=== PATIENT | male | born 1935 ===

== ENCOUNTER → 2020-08-21 | Outpatient (CLI) | payer OTHER ==
--- NOTE | 2020-08-21 11:52 | CT ---
EXAMINATION TYPE: CT brain wo con DATE OF EXAM: 08/21/2020 COMPARISON: None HISTORY: Headache CT DLP: 979.80 mGycm Automated exposure control for dose reduction was used. Helical imaging through the brain FINDINGS: Cortical atrophy is likely age-related. Periventricular white matter shows patchy low attenuation. Th ere is no hemorrhage or hydrocephalus evident. No mass effect. Cerebral vascular calcifications are p resent. The calvarium is intact. Paranasal sinuses and mastoid air cells as visualized are well aerat ed. The orbits show symmetric appearance. IMPRESSION: NO ACUTE ABNORMALITY. AGE-RELATED CHANGES OF ATROPHY AND PROBABLE CHRONIC SMALL VESSEL ISCHEMIA.
== END | disposition home or self-care (01) ==
LOC: RADCTMAIN 08:25
PROVIDERS: ATTEND Nurse Practitioner Acute Care
DX: R51.9 Headache, unspecified (principal)
CPT/HCPCS: 70450

== ENCOUNTER 2021-03-20 11:54 | Day surgery (SDC) | payer OTHER ==
[2021-03-19 09:46] VITALS: BMI 23.1
--- NOTE | 2021-03-20 08:53 | HP ---
HISTORY AND PHYSICAL CHIEF COMPLAINT: Left wrist pain/hand numbness. HISTORY OF PRESENT ILLNESS: Patient is an 85-year-old, right-hand dominant, retired gentleman who presents with progressive left hand pain and numbness for the past year. He denies any injury. He notes index, middle and ring finger numbness. He has tried wearing braces without much relief. He notes significant night symptoms. In addition, he is having a difficult time with gripping and grasping. PAST MEDICAL HISTORY: Significant for arthritis, depression, hypercholesterolemia. PAST SURGICAL HISTORY: Significant for left ankle surgery and cholecystectomy. CURRENT MEDICATIONS: Lovastatin. ALLERGIES: He denies drug allergies. FAMILY HISTORY: Significant for heart disease and cancer. SOCIAL HISTORY: Negative for current tobacco or alcohol use. REVIEW OF SYSTEMS: Sixteen-point review of systems otherwise reviewed and is noncontributory. PHYSICAL EXAMINATION: On examination, the patient is approximately 6 feet 2 inches, 189 pounds, of mesomorphic habitus. HEENT exam is nonfocal. Neck is supple. He is nontender about the left shoulder and elbow. On examination of his left wrist, he has a positive Tinel's over the carpal canal. Moderate thenar wasting is noted. Abductors pollicis brevis strength 5 minus over 5. Light touch is diminished in the left index, middle and ring finger. He has full digital range of motion. IMPRESSION: Symptomatic left carpal tunnel syndrome. RECOMMENDATIONS: I talked to the patient at length regarding his condition and treatment options. At this point, he is quite symptomatic and limited because of pain and numbness despite previous conservative measures. After thorough discussion, he opts to proceed with surgery. We will plan to proceed with left carpal tunnel release utilizing local anesthetic and IV sedation. We will perform that as an outpatient procedure. Risks and benefits were discussed at length in layman's terms. MMODL / IJN: [id number] /
[~2021-03-20 11:54] MED LIST: LACTATED RINGERS 1,000 ML IV SCH; LIDOCAINE 1% (10MG/ML) FOR IV START INTRADERMA PRN; ONDANSETRON 4 MG/2 ML VIAL IVP PRN; fentaNYL (PF) 50 MCG/ML 2 ML AMP IV PRN
[2021-03-20 12:38] VITALS: RESP 16; TEMP 97.6
[2021-03-20 12:47] LABS: Glucose,Whole Blood 113 mg/dL (75-99)
[2021-03-20] MEDS ORDERED: fentaNYL (PF) 50 MCG/ML 2 ML AMP ONE (13:15)
[2021-03-20] MEDS ORDERED: PROPOFOL 10 MG/ML 20 ML VIAL IV ONE (13:15)
[2021-03-20] MEDS ORDERED: MIDAZOLAM 2 MG/2 ML VIAL ONE (13:15)
[2021-03-20] MEDS ORDERED: diphenhydrAMINE 50 MG/ML 1 ML VIAL ONE (13:15)
[2021-03-20] MEDS ORDERED: BUPIVACAINE (PF) 0.25% 30 ML VIAL SQ ONE ×2 (13:35)
--- NOTE | 2021-03-20 13:55 | P.OP ---
Date of Procedure: 03/20/21 Preoperative Diagnosis: Left carpal tunnel syndromesymptomatic Postoperative Diagnosis: Same Procedure(s) Performed: Left carpal tunnel release Anesthesia: MAC, local Surgeon: Jan Middleton Estimated Blood Loss (ml): 1 Pathology: none sent Condition: stable Disposition: PACU Indications for Procedure: The patient's 85-year-old male who presents with persistent/progressive left hand pain and numbness secondary to carpal tunnel syndrome despite conservative measures. Discussion of the risks and benefits of operative intervention was made with patient. He opted to proceed. Operative risks to include infection, neurovascular injury, development of blood clots, possible incomplete resolution of symptoms, possible recurrence of symptoms and need for subsequent procedures was discussed. Informed consent was obtained. Operative Findings: As below Description of Procedure: The patient was brought to the operating room, and after induction of IV sedation the left upper extremity was prepped and draped in normal fashion. The proposed incision site was outlined skin marker in line with the radial aspect the fourth ray extending from the volar wrist crease distally 2-1/2 cm. One quarter percent plain Marcaine was injected into the proposed incision site. 9 mL was utilized. The tourniquet was inflated to 250 mmHg. The skin incision was then made. The skin was incised sharply. Subcutaneous tissues were divided sharply the superficial palmar fascia was identified and split in line with the skin incision. The transverse carpal ligament was identified and transected under direct visualization distally to level the palmar fat pad. Proximal was taken level of the volar wrist crease. A plane above and below the transverse carpal ligament was then bluntly developed with tenotomies. The confluence of the distal forearm fascia and the transverse carpal ligament was then transected under direct visualization proximally with the tines pointed in the ulnar direction. I felt this was adequate proximal release. Neural lysis was not performed. The wound was irrigated with normal saline. Electrocautery was used for hemostasis. The skin was reapproximated with simple 3-0 nylon sutures. A sterile dressing was applied. The tourniquet was deflated with less than 15 minutes total tourniquet time. Patient was awoken from sedation and transferred to the recovery room in good condition. Blood loss was estimated 1 mL. No complications were incurred. Sponge and needle counts were correct at the end the case.
[2021-03-20 14:19] VITALS: BP 130/72; PULSE 70
== END 2021-03-20 14:37 | disposition home or self-care (01) ==
LOC: OR 11:54
PROVIDERS: ATTEND Orthopaedic Surgery
DX: G56.02 Carpal tunnel syndrome, left upper limb (principal); M19.90 Unspecified osteoarthritis, unspecified site; F32.9 Major depressive disorder, single episode, unspecified; E78.00 Pure hypercholesterolemia, unspecified; Z98.890 Other specified postprocedural states; Z90.49 Acquired absence of other specified parts of digestive tract; Z82.49 Family history of ischemic heart disease and other diseases of the circulatory system; Z80.9 Family history of malignant neoplasm, unspecified; Z79.899 Other long term (current) drug therapy; E78.5 Hyperlipidemia, unspecified; E11.9 Type 2 diabetes mellitus without complications
CPT/HCPCS: 64721; J2250; J1200; J0690; J2405; J3010; J2704

== ENCOUNTER 2022-11-16 13:45 | Emergency (ER) | payer OTHER, MEDICARE ==
[2022-11-16 13:53] VITALS: TEMP 98
[2022-11-16] MEDS ORDERED: SODIUM CHLORIDE 0.9% 1,000 ML IV STA (14:04)
[2022-11-16 14:27] LABS: Basophils % (A) 0 %; Eosinophils % (A) 1 %; HCT 34.8 % (39.0-53.0); HGB 11.9 gm/dL (13.0-17.5); Lymphocytes # (A) 0.7 k/uL (1.0-4.8); Lymphocytes % (A) 17 %; MCHC 34.1 g/dL (31.0-37.0); MCV 102.9 fL (80.0-100.0); Macrocytosis Slight; Monocytes # (A) 0.2 k/uL (0-1.0); Monocytes % (A) 5 %; Neutrophils # (A) 3.2 k/uL (1.3-7.7); Neutrophils % (A) 76 %; Platelet Count 160 k/uL (150-450); RBC 3.38 m/uL (4.30-5.90); RDW 14.1 % (11.5-15.5); WBC 4.1 k/uL (3.8-10.6)
--- NOTE | 2022-11-16 14:28 | ED ---
Back Pain HPI - General Chief Complaint: Back Pain/Injury Stated Complaint: Weakness Time Seen by Provider: 11/16/22 13:48 Source: patient Limitations: physical limitation - History of Present Illness Initial Comments: Patient is an 87-year-old male who presents to the emergency department with a chief complaint of back pain. According to daughter patient had a fall in August resulting in fracture of T11. Patient was taken to [facility]. Patient has had significant back pain since the injury. No reinjury. Taking Lamoure without relief. States he is unable to lay down due to pain. Daughter states on November 13 Dr. Jeronimo performed kyphoplasty which did not i mprove pain. This past Thursday his Lamoure dose was increased from 7.5 mg to 10 mg. Despite of this patient is still very uncomfortable. Reports intermittent spasms of his lower back and new onset tingling of his feet this morning. Over the past week he has decreased his oral intake. He is having trouble standing due to weakness and back pain. No focal weakness. No numbness and tingling of the groin. No loss of bowel or bladder function. Patient does not have a public transit specialist. Fever, chills, chest pain, shortness of breath, abdominal pain, nausea, vomiting, burning with urination, diarrhea, constipation. Patient received fentanyl in the ambulance. - Related Data Home Medications Medication Instructions Recorded Confirmed Co Q-10 (Unknown Dose) 1 cap PO DAILY 06/17/16 03/19/21 Multivitamin/Iron/Folic Acid 1 tab PO DAILY 06/17/16 03/19/21 [Centrum Complete Multivit Tab] Vitamin B-12 (Unknown Dose) 1 tab PO DAILY 06/17/16 03/19/21 Calcium Carbonate [Calcium] 600 mg PO DAILY 08/01/20 03/19/21 Cholecalciferol [Vitamin D3 (25 1,000 unit PO DAILY 08/01/20 03/19/21 Mcg = 1000 Iu)] Magnesium Gluconate [Magonate] 500 mg PO DAILY 08/01/20 03/19/21 Weston-3 Fatty Acids/Fish Oil [Fish 1 each PO DAILY 08/01/20 03/19/21 Oil 1,000 mg Softgel] Atorvastati(Unk Dose) 1 tab PO DAILY 03/19/21 03/19/21 Allergies Allergy/AdvReac Type Severity Reaction Status Date / Time No Known Allergies Allergy Verified 11/16/22 13:53 Review of Systems ROS Statement: Those systems with pertinent positive or pertinent negative responses have been documented in the HPI. ROS Other: All systems not noted in ROS Statement are negative. Past Medical History Past Medical History: Diabetes Mellitus, Hyperlipidemia, Osteoarthritis (OA), Prostate Disorder, Skin Disorder Additional Past Medical History / Comment(s): States urinary frequency, Eczema, umbilical hernia,skin Ca,left carpel tunnel,age related forgetfulness,hip injury after fall History of Any Multi-Drug Resistant Organisms: None Reported Past Surgical History: Cholecystectomy, Orthopedic Surgery Additional Past Surgical History / Comment(s): States left ankle repair r/t fall in 1970s Past Anesthesia/Blood Transfusion Reactions: Family History of Problems w/ Anesthesia, Motion Sickness Additional Past Anesthesia/Blood Transfusion Reaction / Comment(s): dtr has PONV Past Psychological History: No Psychological Hx Reported Smoking Status: Never smoker - Past Family History Mother Family Medical History: Diabetes Mellitus, Hypertension Father Family Medical History: Liver Disease, Myocardial Infarction (TN) General Exam Limitations: physical limitation General appearance: alert, in no apparent distress Head exam: Present: atraumatic, normocephalic, normal inspection Eye exam: Present: normal appearance, PERRL, EOMI. Absent: scleral icterus, conjunctival injection, periorbital swelling Respiratory exam: Present: normal lung sounds bilaterally. Absent: respiratory distress, wheezes, rales, rhonchi, stridor Cardiovascular Exam: Present: regular rate, normal rhythm, normal heart sounds. Absent: systolic murmur, diastolic murmur, rubs, gallop, clicks GI/Abdominal exam: Present: soft, distended (moderate), normal bowel sounds, hernia (Umbilical, nontender to palpation.). Absent: tenderness, guarding, rebound, rigid Extremities exam: Present: normal inspection Back exam: Present: normal inspection, paraspinal tenderness (thoracic/lumbar), vertebral tenderness (thoracic/lumbar) Neurological exam: Present: alert, oriented X3, CN II-XII intact Expanded Sensory exam: Upper Extremity Light Touch: Normal, Lower Extremity Light Touch: Normal Motor strength exam: RUE: 5, LUE: 5, RLE: 5, LLE: 5 Psychiatric exam: Present: normal affect, normal mood Skin exam: Present: warm, dry, intact, normal color. Absent: rash Course Vital Signs 11/16/22 11/16/22 11/16/22 13:51 15:53 17:25 Temperature 98.0 F Pulse Rate 96 80 86 Respiratory 16 18 18 Rate Blood Pressure 127/85 140/76 146/86 O2 Sat by Pulse 96 98 98 Oximetry Medical Decision Making - Medical Decision Making Was pt. sent in by a medical professional or institution (, PA, [employer], urgent care, hospital, or residential...) When possible be specific @ -[No] Did you speak to anyone other than the patient for history (EMS, parent, family, police, friend...)? What history was obtained from this source @ -Patient's daughter Did you review nursing and triage notes (agree or disagree)? Why? @ -[I reviewed and agree with nursing and triage notes] Were old charts reviewed (outside hosp., previous admission, EMS record, old EKG, old radiological studies, urgent care reports/EKG's, residential records)? Report findings @ -Yes, previous spine history not available Differential Diagnosis (chest pain, altered mental status, abdominal pain women, abdominal pain men, vaginal bleeding, weakness, fever, dyspnea, syncope, headache, dizziness, GI bleed, back pain, seizure, CVA, palpatations, mental health)? @ -Differential Weakness: Hypoglycemia, shock, sepsis, hyponatremia, anemia, infection, TN, ETOH, adverse medicine reaction, overdose, stroke, this is not meant to be an all-inclusive list. EKG interpreted by me (3pts min.). @ -Yes, sinus rhythm. Right bundle branch block. Ventricular rate 77, ID interval 207, QRS duration 155, QTC 423 X-rays interpreted by me (1pt min.). @ Yes, KUB x-ray shows mild fecal retention. Chest x-ray negative for acute process. CT interpreted by me (1pt min.). @ -Yes, CT of the thoracic lumbar spine without contrast shows subluxation deformity with old fracture of T11 including the posterior elements and spinal stenosis, possibly reflecting an unstable spine U/S interpreted by me (1pt. min.). @ -[None done] What testing was considered but not performed or refused? (CT, X-rays, U/S, labs)? Why? @ -[None] What meds were considered but not given or refused? Why? @ -[None] Did you discuss the management of the patient with other professionals (professionals i.e. , PA, [employer], lab, RT, psych nurse, social science professor, case technician, teacher, juvenile officer, case assistant)? Give summary @ -[No] Was smoking cessation discussed for >3mins.? @ -[No] Was critical care preformed (if so, how long)? @ -[No] Were there social determinants of health that impacted care today? How? (Homelessness, low income, unemployed, alcoholism, drug addiction, transportation, low edu. Level, literacy, decrease access to med. care, [facility], rehab)? @ -[No] Was there de-escalation of care discussed even if they declined (Discuss DNR or withdrawal of care, Hospice)? DNR status @ -[No] What co-morbidities impacted this encounter? (DM, HTN, Smoking, COPD, CAD, Cancer, CVA, ARF, Chemo, Hep., AIDS, mental health diagnosis, sleep apnea, morbid obesity)? @ -[None] Was patient admitted / discharged? Hospital course, mention meds given and route, prescriptions, significant lab abnormalities, going to OR and other pertinent info. @ -This an 87-year-old male presenting with acute on chronic back pain and new onset b/l foot numbness.No neurological deficits on physical exam. CT of the thoracic lumbar spine without contrast shows subluxation deformity with old fracture of T11 including the posterior elements and spinal stenosis, possibly reflecting an unstable spine. I discussed case with Dr. Jeronimo who recommended admission with consult to orthopedic public transit specialist. Case discussed with Dr. Blake who declines consult-recommends Dr. Jeronimo follow this case for continuation of care. This was discussed with patient and his daughter who refuse further management with Dr. Jeronimo due to dissatisfaction with kyphoplasty procedure. I spoke with Dr. Blake again who recommends transfer for neurosurgical evaluation due to acute on chronic back pain with new neurological symptoms and concerning CT. Daughter requests transfer to [facility]. Case discussed with neurosurgeon Dr. Martin and ED attending [facility] who accept transfer. Patient transferred in stable condition Undiagnosed new problem with uncertain prognosis? @ -[No] Drug Therapy requiring intensive monitoring for toxicity (Heparin, Nitro, Insulin, Cardizem)? @ -[No] Were any procedures done? @ -[No] Diagnosis/symptom? @ -Back pain Acute, or Chronic, or Acute on Chronic? @ -Acute on chronic Uncomplicated (without systemic symptoms) or Complicated (systemic symptoms)? @ Uncomplicated Side effects of treatment? @ -[none] Exacerbation, Progression, or Severe Exacerbation] @ -[no] Poses a threat to life or bodily function? @ -[no] is my attending - Lab Data Result diagrams: 11/16/22 14:12 11/16/22 14:12 Lab Results 11/16/22 11/16/22 11/16/22 Range/Units 14:12 14:12 14:15 WBC 4.1 (3.8-10.6) k/uL RBC 3.38 L (4.30-5.90) m/uL Hgb 11.9 L (13.0-17.5) gm/dL Hct 34.8 L (39.0-53.0) % MCV 102.9 H (80.0-100.0) fL MCH 35.0 (25.0-35.0) pg MCHC 34.1 (31.0-37.0) g/dL RDW 14.1 (11.5-15.5) % Plt Count 160 (150-450) k/uL MPV 8.0 Neutrophils % 76 % Lymphocytes % 17 % Monocytes % 5 % Eosinophils % 1 % Basophils % 0 % Neutrophils # 3.2 (1.3-7.7) k/uL Lymphocytes # 0.7 L (1.0-4.8) k/uL Monocytes # 0.2 (0-1.0) k/uL Eosinophils # 0.0 (0-0.7) k/uL Basophils # 0.0 (0-0.2) k/uL Macrocytosis Slight Sodium 138 (137-145) mmol/L Potassium 4.1 (3.5-5.1) mmol/L Chloride 104 (98-107) mmol/L Carbon Dioxide 28 (22-30) mmol/L Anion Gap 6 mmol/L BUN 22 H (9-20) mg/dL Creatinine 0.68 (0.66-1.25) mg/dL Est GFR (CKD-EPI)AfAm >90 (>60 ml/min/1.73 sqM) Est GFR (CKD-EPI)NonAf 86 (>60 ml/min/1.73 sqM) Glucose 136 H (74-99) mg/dL Calcium 8.9 (8.4-10.2) mg/dL Magnesium 2.3 (1.6-2.3) mg/dL Total Bilirubin 0.7 (0.2-1.3) mg/dL AST 24 (17-59) U/L ALT 24 (4-49) U/L Alkaline Phosphatase 108 (38-126) U/L Total Protein 6.6 (6.3-8.2) g/dL Albumin 3.7 (3.5-5.0) g/dL Urine Color Urine Appearance (Clear) Urine pH (5.0-8.0) Ur Specific [place] (1.001-1.035) Urine Protein (Negative) Urine Glucose (UA) (Negative) Urine Ketones (Negative) Urine Blood (Negative) Urine Nitrite (Negative) Urine Bilirubin (Negative) Urine Urobilinogen (<2.0) mg/dL Ur Leukocyte Esterase (Negative) Urine RBC (0-5) /hpf Urine WBC (0-5) /hpf Ur Squamous Epith Cells (0-4) /hpf Urine Bacteria (None) /hpf Urine Mucus (None) /hpf Influenza Type A (PCR) Not Detected (Not Detectd) Influenza Type B (PCR) Not Detected (Not Detectd) RSV (PCR) Not Detected (Not Detectd) SARS-CoV-2 (PCR) Not Detected (Not Detectd) 11/16/22 Range/Units 16:10 WBC (3.8-10.6) k/uL RBC (4.30-5.90) m/uL Hgb (13.0-17.5) gm/dL Hct (39.0-53.0) % MCV (80.0-100.0) fL MCH (25.0-35.0) pg MCHC (31.0-37.0) g/dL RDW (11.5-15.5) % Plt Count (150-450) k/uL MPV Neutrophils % % Lymphocytes % % Monocytes % % Eosinophils % % Basophils % % Neutrophils # (1.3-7.7) k/uL Lymphocytes # (1.0-4.8) k/uL Monocytes # (0-1.0) k/uL Eosinophils # (0-0.7) k/uL Basophils # (0-0.2) k/uL Macrocytosis Sodium (137-145) mmol/L Potassium (3.5-5.1) mmol/L Chloride (98-107) mmol/L Carbon Dioxide (22-30) mmol/L Anion Gap mmol/L BUN (9-20) mg/dL Creatinine (0.66-1.25) mg/dL Est GFR (CKD-EPI)AfAm (>60 ml/min/1.73 sqM) Est GFR (CKD-EPI)NonAf (>60 ml/min/1.73 sqM) Glucose (74-99) mg/dL Calcium (8.4-10.2) mg/dL Magnesium (1.6-2.3) mg/dL Total Bilirubin (0.2-1.3) mg/dL AST (17-59) U/L ALT (4-49) U/L Alkaline Phosphatase (38-126) U/L Total Protein (6.3-8.2) g/dL Albumin (3.5-5.0) g/dL Urine Color Yellow Urine Appearance Cloudy (Clear) Urine pH 6.5 (5.0-8.0) Ur Specific [place] 1.016 (1.001-1.035) Urine Protein 1+ H (Negative) Urine Glucose (UA) Negative (Negative) Urine Ketones Negative (Negative) Urine Blood Moderate H (Negative) Urine Nitrite Negative (Negative) Urine Bilirubin Negative (Negative) Urine Urobilinogen <2.0 (<2.0) mg/dL Ur Leukocyte Esterase Large H (Negative) Urine RBC 30 H (0-5) /hpf Urine WBC 101 H (0-5) /hpf Ur Squamous Epith Cells <1 (0-4) /hpf Urine Bacteria Moderate H (None) /hpf Urine Mucus Rare H (None) /hpf Influenza Type A (PCR) (Not Detectd) Influenza Type B (PCR) (Not Detectd) RSV (PCR) (Not Detectd) SARS-CoV-2 (PCR) (Not Detectd) Disposition Clinical Impression: Back pain Disposition: OTHER INSTITUTION NOT DEFINED Referrals: [facility],Clinic [Primary Care Provider] - 1-2 days - Out of Hospital Transfer - Req. Specs Out of Hospital Transfer - Requested Specifics: Other Emergency Center ([facility])
--- NOTE | 2022-11-16 14:38 | XR ---
EXAMINATION TYPE: XR chest 2V DATE OF EXAM: 11/16/2022 COMPARISON: 06/17/2016 HISTORY: Weakness TECHNIQUE: 2 views FINDINGS: There is minimal linear density left lung base. No heart failure. Heart size is normal. The re is old right-sided healed rib fractures. There is old lower thoracic compression fracture at T12 w ith 75% wedging and vertebral plasty. IMPRESSION: There is some minimal atelectasis left lung base which appears new compared to old exam. No heart failure.
[2022-11-16 14:42] LABS: ALT 24 U/L (4-49); AST 24 U/L (17-59); African American GFR (CKD) >90 (>60 ml/min/1.73 sqM); Albumin 3.7 g/dL (3.5-5.0); Alkaline Phosphatase 108 U/L (38-126); Anion Gap 6 mmol/L; Blood Urea Nitrogen 22 mg/dL (9-20); Calcium 8.9 mg/dL (8.4-10.2); Carbon Dioxide 28 mmol/L (22-30); Chloride 104 mmol/L (98-107); Glucose 136 mg/dL (74-99); Magnesium 2.3 mg/dL (1.6-2.3); Non-African American GFR(CKD) 86 (>60 ml/min/1.73 sqM); Potassium 4.1 mmol/L (3.5-5.1); Sodium 138 mmol/L (137-145); Total Bilirubin 0.7 mg/dL (0.2-1.3); Total Protein 6.6 g/dL (6.3-8.2)
[2022-11-16] MEDS ORDERED: CYCLOBENZAPRINE 5 MG TAB PO STA (14:49)
[2022-11-16] MEDS ORDERED: KETOROLAC 15 MG/ML 1 ML VIAL IVP STA (14:49)
[2022-11-16 16:37] LABS: Appearance,Urine Cloudy (Clear); Bacteria,Urine Moderate /hpf; Bilirubin,Urine Negative (Negative); Blood,Urine Moderate (Negative); Color,Urine Yellow; Glucose,Urine (UA) Negative (Negative); Ketones,Urine Negative (Negative); Leukocyte Esterase,Urine Large (Negative); Mucus,Urine Rare /hpf; Nitrite,Urine Negative (Negative); PH, Urine 6.5 (5.0-8.0); Protein,Urine 1+ (Negative); RBC,Urine 30 /hpf (0-5); Specific Gravity,Urine 1.016 (1.001-1.035); Squamous Epithelial Cell,Urine <1 /hpf (0-4); Urobilinogen,Urine <2.0 mg/dL (<2.0); WBC,Urine 101 /hpf (0-5)
[2022-11-16 16:38] VITALS: RESP 18
--- NOTE | 2022-11-16 16:51 | XR ---
EXAMINATION TYPE: XR KUB DATE OF EXAM: 11/16/2022 COMPARISON: None INDICATION: Abdominal distention TECHNIQUE: Single view abdomen frontal projection FINDINGS: There is a normal colonic bowel gas pattern. Fecal debris is within the transverse colon. No mass eff ect is evident. Psoas margins are normal. No organomegaly is present. Phleboliths are within the pelvis. A right hip pin is present. A 0.8 cm right renal stone is not excl uded. This could be within fecal debris. IMPRESSION: 1. Mild fecal retention. 2. A 0.8 cm right renal stone may be present.
--- NOTE | 2022-11-16 16:53 | CT ---
EXAMINATION TYPE: CT thor lumbar spine wo con DATE OF EXAM: 11/16/2022 COMPARISON: None HISTORY: Back pain, weakness, cannot stand. CT DLP: 1337.6 mGycm Automated exposure control for dose reduction was used. Images obtained from the level of T1-S1 without contrast. There is T11 compression fracture with 50% loss of height. There is vertebroplasty of T11 with bone c ement extending into the disc space at T10-11. There is anterior subluxation of T10 in relation to T1 1 with apparent bilateral T11 pedicle fractures. There is narrowing of the spinal canal at T10 level due to the subluxation and the compression fractures. There is moderate spinal stenosis. There is tamra e infiltrate at both lung bases. There is osteopenia. There is a mild upper thoracic kyphosis and slight anterior wedging of upper tho racic vertebra at T5 and T4 and T3 up to 15%. No significant compression fractures seen in the lumbar spine. IMPRESSION: Subluxation deformity with old fracture of T11 including the posterior elements and spinal stenosis. This could be unstable spine. Recommend comparison with old exam. Subluxation is approximately 8 mm. Osteopenia. Old mild compression fractures in the upper thoracic spine. Multilevel spondylotic change s.
[2022-11-16 18:00] VITALS: PULSE 86
--- NOTE | 2022-11-16 18:22 | P.PN ---
Progress Note - Text Progress Note Date: 11/16/22 I was contacted by the ED regarding this patient 11/16/22 at 1739 since I am covering for general orthopaedic call. I informed them that I do not have spine privileges at this facility and am in no way affiliated with Dr. Camara who recently performed a spine procedure on this patient. It's documented in the chart that I was contacted regarding this patient. I had no involvement in any capacity regarding the care of this patient. I did not make any medical, treatment or disposition decisions on this patient. I recommended the ED contact Dr. Camara.
[2022-11-16] MEDS ORDERED: HYDROmorphone 0.5 MG/0.5 ML SYRINGE IVP STA (20:10)
[2022-11-16 20:21] VITALS: BP 134/76
== END 2022-11-16 20:35 | disposition other institution (70) ==
LOC: EC 13:45
DX: M54.6 Pain in thoracic spine (principal); E11.9 Type 2 diabetes mellitus without complications; E78.5 Hyperlipidemia, unspecified; Z90.49 Acquired absence of other specified parts of digestive tract; Z20.822 Contact with and (suspected) exposure to COVID-19; Z79.899 Other long term (current) drug therapy
CPT/HCPCS: 36415; 93005; 80053; 83735; 85025; 81001; 87086; 87077; 87186; 87636; 71046; 74018; 72128; 72131; 99285; 96374; 96375; 96361; J1885; J1170